=== PATIENT | male | born 1940 | race Caucasian/White ===

== ENCOUNTER 2022-05-11 11:23 | Day surgery (SDC) | payer MEDICARE, OTHER ==
[2022-05-11] VITALS (8 sets, daily range): BP systolic 149–166; BP diastolic 66–93
[~2022-05-11] VITALS: Ht 185.4 cm; Wt 83.4 kg
[2022-05-11] MEDS ORDERED: LORazepam 0.5 MG tablet PO PRN (12:00)
[2022-05-11] MEDS ORDERED: diphenhydrAMINE 25mg capsule PO PRN (12:00)
[2022-05-11] MEDS ORDERED: normal saline 1,000 ML IV SCH (12:00)
[2022-05-11] MEDS ORDERED: MULT-1085 PO (12:22)
[2022-05-11] MEDS ORDERED: PANT-47 PO (12:22)
[2022-05-11] MEDS ORDERED: BUPR-344 PO (12:22)
[2022-05-11] MEDS ORDERED: ALBU8HFA PO (12:22)
[2022-05-11] MEDS ORDERED: FLO0.4C PO (12:22)
[2022-05-11] MEDS ORDERED: ASPI81TA52 PO (12:22)
[2022-05-11] MEDS ORDERED: FENO145T46 PO (12:22)
[2022-05-11] MEDS ORDERED: TRIA0.1232 PO (12:22)
[2022-05-11] MEDS ORDERED: LEVO112T39 PO (12:22)
[2022-05-11] MEDS ORDERED: NAS0.025NS BOTHNARES (12:22)
[2022-05-11] MEDS ORDERED: IBUP-1984 PO (12:22)
[2022-05-11] MEDS ORDERED: ATOR40TA PO (12:22)
[2022-05-11] MEDS ORDERED: CARV-50 PO (12:22)
[2022-05-11] MEDS ORDERED: SERT100T PO (12:22)
[2022-05-11] MEDS ORDERED: OMEG-45 PO (12:22)
[2022-05-11] MEDS ORDERED: CHOL200074 PO (12:22)
[2022-05-11] MEDS ORDERED: verapamil 2.5 mg/ml inj IV ONE (12:47)
[2022-05-11] MEDS ORDERED: nitroGLYCERIN-Tridil 50MG/D5W 250 ML IV ONE (12:47)
[2022-05-11] MEDS ORDERED: fentaNYL/PF 50MCG/1 ML 2ML syringe ONE (12:47)
[2022-05-11] MEDS ORDERED: midazolam 1 mg/ML 2ml injection ONE (12:48)
[2022-05-11] MEDS ORDERED: heparin 1,000unit/ml 10ml vial 10 ML ONE (12:48)
[2022-05-11] MEDS ORDERED: LIDOcaine 1% (10mg/ml) 2ml vial ONE (12:48)
[2022-05-11] MEDS ORDERED: iohexol 300mg/ml 100ml inj. ONE (12:48)
[2022-05-11] MEDS ORDERED: iohexol 350MG/ML 100ml bottle IV ONE (12:50)
[2022-05-11] MEDS ORDERED: atropine 0.1mg/ml 10ml syringe ONE (14:05)
[2022-05-11] MEDS ORDERED: HYDROcodone/acetaminophen 5mg/325mg tablet PO PRN (14:35)
[2022-05-11] MEDS ORDERED: HYDROcodone/acetaminophen 10/325mg tab PO PRN (14:35)
--- NOTE | 2022-05-11 14:40 | NUR ---
Released 2cc of air due to large amount of swelling and hand slightly discolored. Released 2 more cc and hand now looks normal and swelling much better.
--- NOTE | 2022-05-11 14:40 | NUR ---
Went in to check on patient and hematoma present (probably around 2 inches). Notified Charge Nurse, applied steady pressure for 5-10mins. Ecchymosis present. After steady pressure, hematoma much smaller and softer (down to about one quarter inch). Will continue to monitor.
== END 2022-05-11 16:40 | disposition home or self-care (01) ==
LOC: SSTAY O 11:23
PROVIDERS: ATTEND Student in an Organized Health Care Education/Training Program
DX: R94.39 Abnormal result of other cardiovascular function study (principal); I25.10 Atherosclerotic heart disease of native coronary artery without angina pectoris; I10 Essential (primary) hypertension; J45.909 Unspecified asthma, uncomplicated; Z87.891 Personal history of nicotine dependence; Z98.890 Other specified postprocedural states; Z96.642 Presence of left artificial hip joint; Z79.82 Long term (current) use of aspirin; Z79.51 Long term (current) use of inhaled steroids; Z79.899 Other long term (current) drug therapy
CPT/HCPCS: 93005; 93458; 99152; A6258; C1769; C1894; J1644; J2250; J3010; J3490; J7030; Q0163; Q9967; A6402; J0461